=== PATIENT | male | born 1995 | race Caucasian/White ===

== ENCOUNTER 2016-08-20 19:34 | Emergency (ER) | payer OTHER, BC ==
[~2016-08-20 19:34] MED LIST: ACCUTANE40 MG PO; CLARITHROMYCIN500 MG PO
[2016-08-20] MEDS ORDERED: NO HOME MEDICATION XX (19:54)
== END 2016-08-20 20:50 ==
LOC: EDMED 19:34
DX: H57.8 Other specified disorders of eye and adnexa (principal); Z77.098 Contact with and (suspected) exposure to other hazardous, chiefly nonmedicinal, chemicals